=== PATIENT | male | born 1985 | race Caucasian/White ===

== ENCOUNTER → 2017-06-09 | Outpatient (CLI) | payer OTHER ==
--- NOTE | 2017-06-10 09:03 | DI ---
History: Right elbow pain Comparison: None Findings: No fracture No malalignment No degenerative changes No destructive lesion No joint effusion Impression: Unremarkable plain film study of
== END ==
LOC: MOB RAD 16:38
PROVIDERS: ATTEND Physician Assistant
DX: M25.521 Pain in right elbow (principal); R20.0 Anesthesia of skin; M79.89 Other specified soft tissue disorders; X50.0XXA Overexertion from strenuous movement or load, initial encounter; Y93.H3 Activity, building and construction; Y92.89 Other specified places as the place of occurrence of the external cause; Y99.0 Civilian activity done for income or pay
CPT/HCPCS: 73080

== ENCOUNTER → 2017-06-10 | Outpatient (CLI) | payer OTHER ==
--- NOTE | 2017-06-10 09:48 | DI ---
History: Evaluation for metallic foreign bodies in the periorbital region for MRI clearance Comparison: None Findings: Progressed there are no metallic foreign bodies in the periorbital region. Mastoid cells are well aerated Paranasal sinuses are clear. No gross osseous abnormalities. Impression: Patient is cleared for MRI
== END ==
LOC: ORTHO 09:24
PROVIDERS: ATTEND Physician Assistant
DX: T15.80XA Foreign body in other and multiple parts of external eye, unspecified eye, initial encounter (principal); Y93.H3 Activity, building and construction; Y92.69 Other specified industrial and construction area as the place of occurrence of the external cause; Y99.0 Civilian activity done for income or pay
CPT/HCPCS: 70030

== ENCOUNTER → 2017-06-14 | Outpatient (CLI) | payer OTHER ==
--- NOTE | 2017-06-14 10:07 | DI ---
MRI RIGHT ELBOW SCAN, 06/14/2017 8:57 AM: Clinical History: Injury of the right elbow. Previous Exam: None at this facility. Technique: Axial, coronal, and sagittal PD and fat saturated PD. SPIR. There is no soft tissue edema. There is a small joint effusion slightly greater than a physiologic am ount. No abnormal bone signal pattern is present. On all scans, there is slight increased signal inte nsity in the flexor carpi ulnaris muscle but this is probably a positioning artifact with the receivi ng coil. However, if the patient is symptomatic in this area, then this may represent a muscle strain . The common flexor tendon is intact. There is intermediate signal intensity in the common extensor t endon consistent with a chronic partial tear. The remaining tendinous and ligamentous structures are intact. The articular surfaces of the distal humerus and the radius and ulna are normal. Readin. There is a very small joint effusion. No abnormal bone signal pattern is noted. 2. Hyperintensity is noted in the flexor carpi ulnaris muscle. This is felt to be an artifact, but i f the patient is symptomatic in this region, then it may represent a mild muscle strain. The remainde r of the exam is unremarkable.
== END ==
LOC: MRI 08:46
PROVIDERS: ATTEND Physician Assistant
DX: S59.901A Unspecified injury of right elbow, initial encounter (principal); M25.521 Pain in right elbow; M25.461 Effusion, right knee
CPT/HCPCS: 73221